=== PATIENT | female | born 2005 | race Caucasian/White ===

== ENCOUNTER 2024-02-04 14:56 | Emergency (ER) | payer MEDICAID ==
[~2024-02-04] VITALS: Ht 157.5 cm; Wt 113.4 kg
[2024-02-04 15:15] VITALS: PULSE 103; RESP 20; TEMP 96.9; O2SAT 97
[2024-02-04 15:36] LABS: BASOPHILS # (AUTO) 0.1 K/uL (0.0-0.2); BASOPHILS % (AUTO) 0.7 % (0.0-2.0); EOSINOPHILS # (AUTO) 0.4 K/uL (0.0-0.4); EOSINOPHILS % (AUTO) 2.6 % (0.0-4.0); HEMATOCRIT 40.9 % (36-48); HEMOGLOBIN 13.5 g/dL (12.0-16.0); LYMPHOCYTES # (AUTO) 2.7 K/uL (1.0-5.5); LYMPHOCYTES % (AUTO) 17.9 % (20.5-51.5); MEAN CORPUSCULAR HEMOGLOBIN 28 pg (27-31); MEAN CORPUSCULAR HGB CONC 33 % (32-36); MEAN CORPUSCULAR VOLUME 85 fL (79.0-98.0); MONOCYTES # (AUTO) 1.1 K/uL (0.0-1.0); NEUTROPHILS # (AUTO) 10.8 K/uL (1.8-7.7); NEUTROPHILS % (AUTO) 71.8 % (40.0-70.0); PLATELET COUNT (AUTO) 389 K/uL (130-430); RED BLOOD CELL COUNT(AUTO) 4.82 MIL/uL (4.2-6.2); RED CELL DISTRIBUTION WIDTH 13.1 % (9.0-15.0); WHITE BLOOD COUNT (AUTO) 15.1 K/uL (4.5-11.0)
[2024-02-04 15:57] LABS: ALBUMIN 3.5 g/dL (3.4-4.8); BILIRUBIN,DIRECT 0.2 mg/dL (0.0-0.3); CALCIUM 9.4 mg/dL (8.4-11.0); CREATININE 0.78 mg/dL (0.55-1.30); POTASSIUM 4.1 mmol/L (3.5-5.1); TOTAL PROTEIN, SERUM 8.4 g/dL (6.4-8.3)
[2024-02-04 16:21] LABS: FREE T4 (FREE THYROXINE) 1.3 ng/dL (0.6-1.6); THYROID STIMULATING HORMONE 1.77 uIu/mL (0.34-4.82)
== END 2024-02-04 16:01 | disposition left against medical advice (07) ==
LOC: SED 14:56
DX: R06.02 Shortness of breath (principal)
CPT/HCPCS: 36415; 71045; 80048; 80061; 80076; 83037; 84439; 84443; 85025; 99284